=== PATIENT | male | born 2000 | race African-American/Black ===

== ENCOUNTER 2024-10-30 20:22 | Emergency (ER) | payer SELFPAY ==
[~2024-10-30] VITALS: Ht 193 cm; Wt 100.0 kg
[2024-10-30 21:02] VITALS: BP 130/75; PULSE 73; RESP 15; TEMP 97.9; O2SAT 98
[2024-10-30] MEDS ORDERED: AMOX-457 PO (21:23)
[2024-10-30] MEDS ORDERED: ACET-3385 PO (21:23)
[2024-10-30] MEDS ORDERED: IBUP-1492 PO (21:23)
[2024-10-30] MEDS: KETOROLAC TROMETHAMINE 30 MG/ML VIAL IM ONE (21:54)
[2024-10-30] MEDS: AMOX TR/POT CLAV 875 MG/125 MG TABLET PO ONE (21:55)
[2024-10-30] MEDS: ACETAMINOPHEN 500 MG TABLET PO ONE (21:55)
== END 2024-10-30 22:15 | disposition home or self-care (01) ==
LOC: EMS 20:22
DX: K08.89 Other specified disorders of teeth and supporting structures (principal)
CPT/HCPCS: 99283; 96372; J1885